=== PATIENT | female | born 1980 | race Two or more races ===

== ENCOUNTER → 2024-08-22 | Outpatient (CLI) | payer BC, SELFPAY ==
[2024-08-22 12:03] LABS: Free T3 2.8 pg/mL (2.3-4.2); Free T4 (Free Thyroxine) 0.86 ng/dL (0.89-1.76)
[2024-08-26 06:38] LABS: T3, Reverse, LC/MS/MS* 14 ng/dL (8-25)
== END | disposition home or self-care (01) ==
LOC: COPL 09:59
PROVIDERS: PCP Family Medicine; Referring Provider Family Medicine; Visit Provider Family Medicine
DX: E03.9 Hypothyroidism, unspecified (principal)
CPT/HCPCS: 36415; 84439; 84443; 84481; 84482